=== PATIENT | female | born 1945 | race Caucasian/White ===

== ENCOUNTER 2016-09-26 08:00 | Emergency (ER) | payer MEDICARE ==
[~2016-09-26 08:00] MED LIST: Sodium Chloride 0.9% 1,000 ML BAG ONE; Sodium Chloride 0.9% 100 ML BAG ONE
[2016-09-26] MEDS ORDERED: Ondansetron HCl/PF 4 MG/2 ML Vial ONE (08:20)
--- NOTE | 2016-09-26 08:45 | RAD ---
RADIOGRAPH CHEST 2 VIEWS: HISTORY: 70-year-old female with fever. FINDINGS: There is no air space density, pulmonary edema, pleural effusion, pneumothorax, or cardiomegaly. IMPRESSION: No acute cardiopulmonary findings. [email or web address] POS: NEVIN
--- NOTE | 2016-09-26 08:46 | RAD ---
NECK SOFT TISSUE: Date: 09/26/16 HISTORY: Fever. COMPARISON: None. FINDINGS: There is mild prominence of the palatine tonsils. Patient is edentulous. The epiglottis and aryepigl ottic folds are sharp. Mild prominence of the sublingual tonsils. IMPRESSION: Tonsillar hypertrophy. CT of neck may be helpful. POS: NEVIN
[2016-09-26 09:01] LABS: Hemoglobin 12.6 g/dL (12.0-16.0); Mean Corpuscular HGB CONC 34.5 g/dL (32.0-36.0); Mean Corpuscular Hemoglobin 30.4 pg (27.0-31.0); Mean Corpuscular Volume 88.2 fl (81.0-99.0); Platelet Count 230 thou/uL (130-400); RBC Distribution Width 11.9 % (11.5-14.5); Red Blood Cell (RBC) Count 4.15 mill/uL (4.20-5.40)
[2016-09-26 09:30] LABS: ALT (SGPT) 42 U/L (8-55); AST (SGOT) 43 U/L (5-34); Albumin 4.2 g/dL (3.4-4.8); Alkaline Phosphatase 80 U/L (40-150); Anion Gap 16 mmol/L (10-20); BUN (Urea Nitrogen) 13 mg/dL (9.8-20.1); Bilirubin, Total 0.5 mg/dL (0.2-1.2); Calc. Creatinine Clearance 0 mL/min (70-130); Carbon Dioxide 18 mmol/L (23-31); Chloride 104 mmol/L (98-107); Estimated GFR-MDRD 65; Globulin 3.6 g/dL (2.4-3.5); Glucose 144 mg/dL (80-115); Potassium 4.3 mmol/L (3.5-5.1); Protein, Total 7.8 g/dL (6.0-8.3); Sodium 134 mmol/L (136-145)
[2016-09-26] MEDS ORDERED: Piperacillin/Tazobactam 3.375 GM VIAL ONE (09:47)
[2016-09-26 10:01] LABS: Band 26 % (5-11); Lymphocytes 4 % (21-51); MDiff Complete? YES; Manual Diff?? YES; Neutrophil 66 % (42-75); PLT Morphology Comment Appears Adequate; RBC Morphology N
[2016-09-26] MEDS ORDERED: Iopamidol 370 76% 100 ML VIAL ONE (10:33)
[2016-09-26] MEDS ORDERED: Sterile Water 10 ML ONE (11:08)
[2016-09-26] MEDS ORDERED: methylPREDNISolone Sod Succ/PF 125 MG/2 ML VIAL ONE (11:08)
--- NOTE | 2016-09-26 11:11 | CT ---
CT NECK SOFT TISSUE: Date: 09/26/16 HISTORY: Cough and sore throat. COMPARISON: Neck soft tissues same date. FINDINGS: There is mild enlargement of the palatine tonsils bilaterally. Inguinal tonsils also mildly prominen t. Mild pharyngeal hyperenhancement. There are two areas of focal enhancement within the right parotid gland, series 2, image 11 and 6. The vasculature is patent. No abscess. Mild degenerative disc space height loss at C5-6. Lung apices are clear. The submandibular and parotid glands are without significant edema. IMPRESSION: 1. Findings suggestive of pharyngitis with mild mucosal hyperenhancement, as well as mildly promine nt palatine tonsils. 2. Two separate areas of enhancement in the right parotid gland, series 2, image 11, measuring 6.0 mm, and of series 2, image 6, measuring 4.0 mm. This may represent normal lymph nodes such as Warth in's tumors. ENT follow-up recommended. POS: NEVIN
== END 2016-09-26 12:00 | disposition home or self-care (01) ==
LOC: MADERS 08:00
DX: J02.9 Acute pharyngitis, unspecified (principal); K11.8 Other diseases of salivary glands; K21.9 Gastro-esophageal reflux disease without esophagitis; F32.9 Major depressive disorder, single episode, unspecified; Z79.899 Other long term (current) drug therapy
CPT/HCPCS: 36415; 70360; 70491; 71020; 80053; 83605; 85025; 87040; 87081; 87430; 94760; 96361; 96365; 96375; A4216; J2405; J2543; J2930; J7050